=== PATIENT | female | born 1990 | race Caucasian/White ===

== ENCOUNTER 2020-08-20 11:37 | Emergency (ER) | payer OTHER ==
[~2020-08-20] VITALS: Ht 170.2 cm; Wt 59.0 kg
[2020-08-20] MEDS ORDERED: ONDANSETRON HCL/PF 4 MG/2 ML VIAL IVP ONE (12:00)
[2020-08-20] MEDS ORDERED: MORPHINE SULFATE INJ 2 MG/ML DISP.SYRIN IV ONE (12:00)
[2020-08-20] MEDS ORDERED: MORPHINE SULFATE INJ 4 MG/ML DISP.SYRIN ONE (12:03)
[2020-08-20] MEDS ORDERED: ONDANSETRON HCL/PF 4 MG/2 ML VIAL ONE (12:03)
--- NOTE | 2020-08-20 12:11 | NUR ---
IV LINE ESTABLISHED.
[2020-08-20] MEDS ORDERED: HYDROCODONE/APAP 5/325MG TABLET ONE (12:43)
[2020-08-20] MEDS ORDERED: SILVER SULFADIAZINE CREAM 25 GM TUBE ONE (12:57)
[2020-08-20] MEDS ORDERED: HYDROCODONE/APAP 5/325MG TABLET PO ONE (13:00)
[2020-08-20] MEDS ORDERED: SILVER SULFADIAZINE CREAM 25 GM TUBE TP ONE (13:00)
--- NOTE | 2020-08-20 13:36 | NUR ---
Patient discharged to home in stable condition. Written and verbal after care instructions given. Patient verbalizes understanding of instruction.
--- NOTE | 2020-08-20 13:36 | NUR ---
APPLIED SILVADENE, THEN RIGHT ARM COVERED WITH XEROFORM DRESSING AND THEN COVERED WITH KERLEX. NO DISTRESS NOTED.
[2020-08-20 13:37] VITALS: BP 148/89
== END 2020-08-20 13:37 | disposition home or self-care (01) ==
LOC: ER 11:45
DX: T22.211A Burn of second degree of right forearm, initial encounter (principal); Z88.8 Allergy status to other drugs, medicaments and biological substances; X11.8XXA Contact with other hot tap-water, initial encounter; Y93.89 Activity, other specified; Y92.89 Other specified places as the place of occurrence of the external cause; Y99.8 Other external cause status
CPT/HCPCS: 16020; 96374; 96375; 99284; J2270; J2405